=== PATIENT | female | born 1985 | race Caucasian/White ===

== ENCOUNTER 2018-07-22 05:33 | Inpatient (IN) | payer BC ==
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
[~2018-07-22 05:33] MED LIST: Sodium Chloride 0.9% 10 ML Syringe FLUSH PRN
[2018-07-22] MEDS: Lactated Ringers 1,000 ML IV SCH ×2 (06:10→07:26)
[2018-07-22] MEDS ORDERED: Bupivacaine 0.5% 30 ML SDV ONE (06:25)
[2018-07-22] MEDS ORDERED: Citric Acid/Sodium Citrate Solution 30 ML Cup PO ONE (06:30)
[2018-07-22] MEDS ORDERED: Metoclopramide 10 MG/2 ML SDV IVPUSH ONE (06:30)
[2018-07-22] MEDS ORDERED: ceFAZolin 1 GM Vial ONE (07:11)
[2018-07-22] MEDS ORDERED: Phenylephrine 1% 10 MG/ML SDV ONE (07:11)
[2018-07-22] MEDS ORDERED: Oxytocin 10 Units/1 ML SDV ONE ×2 (07:12→08:18)
[2018-07-22] MEDS ORDERED: Ketorolac 30 MG/ML SDV ONE (07:12)
[2018-07-22] MEDS ORDERED: Morphine 10 MG/ML Syringe ONE (07:14)
[2018-07-22] MEDS ORDERED: Bupivacaine 0.75%/D5W 2 ML Amp ONE (07:14)
[2018-07-22] MEDS ORDERED: Morphine PF 1 MG/ML Amp ONE (07:17)
[2018-07-22] MEDS ORDERED: ceFAZolin 2 GM in Premix Bag 1 BAG IV ONE (07:30)
--- NOTE | 2018-07-22 08:36 | PCM.POSTAN ---
POST ANESTHESIA ASSESSMENT - MENTAL STATUS Mental Status: Alert, Oriented - VITAL SIGNS Pulse Rate: 87 SaO2: 97 Resp Rate: 13 Blood Pressure: 99/40 Temperature: 36.4 C - RESPIRATORY Respiratory Status: Respiratory Rate WNL, Airway Patent, O2 Saturation Stable, Supplemental Oxygen - CARDIOVASCULAR CV Status: Pulse Rate WNL, Blood Pressure Stable - GASTROINTESTINAL GI Status: No Symptoms - PAIN Pain Score: 0 - POST OP HYDRATION Hydration Status: Adequate & Stable - OBSERVATIONS Free Text/Narrative:: no anesthesia complications noted
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
--- NOTE | 2018-07-22 08:41 | PCM.OPNOTE ---
- General Post-Op/Procedure Note Date of Surgery/Procedure: 07/22/18 Operative Procedure(s): Repeat low ovarian segment transverse section through Pfannenstiel skin incision Findings: Uterus tubes and ovaries consistent with term . Baby in vertex presentation. Amniotic fluid clear. Lower uterine segment approximately 2 mm thick. No significant scarring noted. Female . Apgars 8 and 8. Weight is 7 lbs. 10 oz. Baby is born at 0802 hrs. on 07/22/2017. Pre Op Diagnosis: 1. 39-0/7 week intrauterine . 2. History of previous section desire for repeat section Post-Op Diagnosis: Same Anesthesia Technique: Combo Spinal/Epidural Other Anesthesia Type: Marcaine 0.5%20 mLlocal Primary Surgeon: Ulices Candelario Secondary Surgeon: Mily Fernandez Anesthesia Provider: Lion Farrell Reason Signal Circuit Designer Was Necessary: Retraction, assistance, patient safety, quality of care. Role of Signal Circuit Designer: Same Fluid Replacement, Intraop: 2,500 Output, Urine Amount: 30 Drain/Tube Comments:: Indwelling bladder catheter Condition: Good Free Text/Narrative:: Surgery duration: 23 minutes Procedure: The patient is appropriately consented. Patient was transferred to the room and placed in a sitting position. Spinal anesthesia was administered. After confirmation of adequate anesthesia patient was placed in a supine position with a wedge under her right side to facilitate left lateral positioning. The patient was prepped and draped in usual fashion after Swenson catheter was already placed . The anesthetic was checked and found to be adequate. 20 mL of Marcaine 0.5% was injected locally in the Pfannenstiel incision site. The Pfannenstiel skin incision was then made and carried down through skin, subcutaneous and fascial layers. The fascia was then undermined superiorly and inferiorly to allow for adequate operating room. The recti muscles midline and preperitoneal fat was bluntly dissected. Peritoneal cavity was entered longitudinally. The vesicouterine peritoneum was then incised transversely and bladder flap was developed. Myometrium was incised transversely to the level of the amniotic sac. This incision was extended bilaterally in a blunt fashion. The amniotic sac was then ruptured resulting in clear amniotic fluid. A hand is placed in the low uterine segment and the baby's head was brought forth through the incision. The baby was completely delivered using fundal pressure in a routine fashion. The nose and mouth were bulb suctioned. Baby's cord was clamped x2 cut and baby was handed off to attending software consultant Dr Irwin. Placenta was expressed after cord blood was obtained. Uterus was then exteriorized to allow for easier closure. The cervix was assessed and found to be dilated adequately to allow egress of blood. The uterus was closed in 2 layers. The first layer a running locked suture of 0 Monocryl, the second layer a running locked vertical mattress suture of 0 Monocryl. [id number] sutures was placed at the left end of the incision and at mid incision to control 2 bleeders. Hemostasis confirmed at this time. Sponge instrument needle counts are correct. The uterus was returned to the abdominal cavity and lateral gutters were cleared of blood. Once again sponge needle counts are correct. The anterior abdominal wall was closed with a #1 PDS suture from angle to angle. The subcutaneous area was found to be free of any bleeders. interrupted sutures of 3-0 Monocryl were used to reapproximate the subcutaneous layer.Skin was closed with a running subcuticular stitch of 3- 0 Monocryl in a vertical mattress suture fashion using a Collin needle. Prineo mesh/glue was then applied to further approximate the incision. It should be noted that patient received 2 g of Ancef preoperatively for infection prophylaxis and had Pitocin infused after delivery of the placenta to facilitate uterine contraction. She also had sequential compression stockings in place for DVT prophylaxis. Patient was discharged from the operating room in satisfactory condition.
[2018-07-22] MEDS ORDERED: ePHEDrine 50 MG/ML SDV IVPUSH PRN (09:34)
[2018-07-22] MEDS ORDERED: Naloxone 0.4 MG/ML SDV IVPUSH PRN (09:34)
[2018-07-22] MEDS ORDERED: Ondansetron 4 MG/2 ML SDV IV PRN (09:34)
[2018-07-22] MEDS ORDERED: Docusate Sodium 100 MG Cap PO PRN (09:34)
[2018-07-22] MEDS ORDERED: Lanolin 100% Cream 7 GM Tube TOP PRN (09:34)
[2018-07-22] MEDS ORDERED: Dextrose 5%-Lactated Ringers 1,000 ML IV SCH (09:34)
[2018-07-22] MEDS: Prenatal Multivitamin with Calcium/Folic Acid/Iron Tab PO SCH ×2 (10:45→11:21)
[2018-07-22] MEDS: diphenhydrAMINE 50 MG/ML SDV IVPUSH PRN ×2 (10:45→16:48)
[2018-07-22] MEDS: Simethicone 80 MG Tab.Chew PO SCH ×4 (11:19→22:07)
[2018-07-22] MEDS: Ibuprofen 800 MG Tab PO SCH ×2 (14:16→22:07)
[2018-07-22] MEDS: Acetaminophen/oxyCODONE 325-5 MG Tab PO PRN (19:00)
[2018-07-23] MEDS: Acetaminophen/oxyCODONE 325-5 MG Tab PO PRN ×4 (00:04→15:34)
[2018-07-23] MEDS: Ibuprofen 800 MG Tab PO SCH ×2 (06:03→13:53)
--- NOTE | 2018-07-23 07:27 | PCM.PNPP ---
- General Info Date of Service: 07/23/18 Functional Status: Reports: Pain Controlled - Review of Systems General: Reports: No Symptoms HEENT: Reports: No Symptoms Pulmonary: Reports: No Symptoms Cardiovascular: Reports: No Symptoms Gastrointestinal: Reports: No Symptoms Genitourinary: Reports: No Symptoms Musculoskeletal: Reports: No Symptoms Skin: Reports: No Symptoms Neurological: Reports: No Symptoms Psychiatric: Reports: No Symptoms - General Info Date of Service: 07/23/18 - Patient Data Vital Signs - Most Recent: Last Vital Signs Temp 36.7 C 07/23/18 04:00 Pulse 89 07/23/18 04:00 Resp 14 07/23/18 06:00 BP 116/89 07/23/18 04:00 Pulse Ox 96 07/23/18 06:00 Weight - Most Recent: 75.705 kg I&O - Last 24 Hours: Intake & Output 07/22/18 07/23/18 07/23/18 22:59 06:59 14:59 Intake Total 240 240 Output Total 3000 1900 Balance -2760 -1900 240 Lab Results - Last 24 Hours: Laboratory Results - last 24 hr 07/23/18 Range/Units 06:19 WBC 10.38 H (3.98-10.04) K/mm3 RBC 4.07 (3.98-5.22) M/mm3 Hgb 12.4 (11.2-15.7) gm/L Hct 36.2 (34.1-44.9) % MCV 88.9 (79.4-94.8) fl MCH 30.5 (25.6-32.2) pg MCHC 34.3 (32.2-35.5) g/dl RDW Std Deviation 40.8 (36.4-46.3) fL Plt Count 158 L (182-369) K/mm3 MPV 12.4 H (9.4-12.3) fl Neut % (Auto) 61.8 (34.0-71.1) % Lymph % (Auto) 27.3 (19.3-51.7) % [place] % (Auto) 7.0 (4.7-12.5) % Eos % (Auto) 3.3 (0.7-5.8) Baso % (Auto) 0.1 (0.1-1.2) % Neut # (Auto) 6.42 H (1.56-6.13) K/mm3 Lymph # (Auto) 2.83 (1.18-3.74) K/mm3 [place] # (Auto) 0.73 H (0.24-0.36) K/mm3 Eos # (Auto) 0.34 (0.04-0.36) K/mm3 Baso # (Auto) 0.01 (0.01-0.08) K/mm3 Med Orders - Current: Current Medications Diphenhydramine HCl (Benadryl) 25 mg IVPUSH Q6H PRN PRN Reason: Itching or Nausea Last Admin: 07/22/18 16:48 Dose: 25 mg Docusate Sodium (Colace) 100 mg PO Q12H PRN PRN Reason: Constipation Emollient Ointment (Lansinoh Hpa) 0 gm TOP ASDIRECTED PRN PRN Reason: Sore Nipples Ephedrine Sulfate (Ephedrine Sulfate) 5 mg IVPUSH SEECOMMENT PRN PRN Reason: Other Ibuprofen (Motrin) 800 mg PO Q8H [facility] Last Admin: 07/23/18 06:03 Dose: 800 mg Naloxone HCl (Narcan) 0.1 mg IVPUSH SEECOMMENT PRN PRN Reason: Respiratory Depression Ondansetron HCl (Zofran) 4 mg IV Q4H PRN PRN Reason: Nausea/Vomiting Oxycodone/Acetaminophen (Percocet 325-5 Mg) 2 tab PO Q4H PRN PRN Reason: Pain (moderate 4-6) Last Admin: 07/23/18 06:44 Dose: 2 tab Prenat Multivit/[place]/Iron/Folic Ac ( Plus Iron) 1 each PO DAILY [facility] Last Admin: 07/22/18 11:21 Dose: Not Given Simethicone (Simethicone) 80 mg PO PCBED [facility] Last Admin: 07/22/18 22:07 Dose: 80 mg Discontinued Medications Bupivacaine HCl (Marcaine 0.5%) Confirm Administered Dose 30 ml .ROUTE .STK-MED ONE Stop: 07/22/18 06:26 Last Admin: 07/22/18 07:58 Dose: 20 ml Bupivacaine HCl/Dextrose (Marcaine 0.75% Spinal) Confirm Administered Dose 2 ml .ROUTE .STK-MED ONE Stop: 07/22/18 07:15 Cefazolin Sodium (Ancef) Confirm Administered Dose 2 gm .ROUTE .STK-MED ONE Stop: 07/22/18 07:12 Citric Acid/Sodium Citrate (Bicitra Solution) 30 ml PO ONETIME ONE Stop: 07/22/18 06:31 Last Admin: 07/22/18 07:19 Dose: 30 ml Cefazolin Sodium/Dextrose 2 gm (/ Premix) 50 mls @ 100 mls/hr IV ONETIME ONE Stop: 07/22/18 07:59 Last Admin: 07/22/18 11:18 Dose: Not Given Lactated Ringer's (Ringers, Lactated) 1,000 mls @ 125 mls/hr IV ASDIRECTED [facility] Last Admin: 07/22/18 07:26 Dose: 999 mls/hr Oxytocin 20 unit/ Lactated (Ringer's) 502 mls @ 500 mls/hr IV ONETIME ONE Stop: 07/22/18 08:30 Last Admin: 07/22/18 11:18 Dose: Not Given Lidocaine HCl (Xylocaine-Mpf 1%) Confirm Administered Dose 5 mls @ as directed .ROUTE .STK-MED ONE Stop: 07/22/18 07:15 Dextrose/Lactated Ringer's (Dextrose 5%-Lactated Ringers) 1,000 mls @ 125 mls/ hr IV ASDIRECTED [facility] Stop: 07/22/18 17:33 Last Admin: 07/22/18 16:26 Dose: 125 mls/hr Ketorolac Tromethamine (Toradol) Confirm Administered Dose 30 mg .ROUTE .STK- MED ONE Stop: 07/22/18 07:13 Metoclopramide HCl (Reglan) 10 mg IVPUSH ONETIME ONE Stop: 07/22/18 06:31 Last Admin: 07/22/18 07:20 Dose: 10 mg Morphine Sulfate (Morphine) Confirm Administered Dose 10 mg .ROUTE .STK-MED ONE Stop: 07/22/18 07:15 Morphine Sulfate (Duramorph Pf) Confirm Administered Dose 1 mg .ROUTE .STK-MED ONE Stop: 07/22/18 07:18 Oxytocin (Pitocin) Confirm Administered Dose 10 unit .ROUTE .STK-MED ONE Stop: 07/22/18 07:13 Oxytocin (Pitocin) Confirm Administered Dose 10 unit .ROUTE .STK-MED ONE Stop: 07/22/18 08:19 Phenylephrine HCl (Santhosh-Synephrine) Confirm Administered Dose 10 mg .ROUTE .STK- MED ONE Stop: 07/22/18 07:12 Sodium Chloride (Saline Flush) 10 ml FLUSH ASDIRECTED PRN PRN Reason: Keep Vein Open - Interaction Support Person: - Recovery Exam Fundal Tone: Firm Fundal Level: 1 Fingerbreadths Below Umbilicus Fundal Placement: Midline Lochia Amount: Small Lochia Color: Rubra/Red Perineum Description: Intact, Minimal Bruising/Swelling Bladder Status: Voiding Urinary Elimination: Voided - Exam General: Alert, Oriented HEENT: Pupils Equal Neck: Supple Lungs: Clear to Auscultation, Normal Respiratory Effort Cardiovascular: Regular Rate, Regular Rhythm GI/Abdominal Exam: Normal Bowel Sounds, Soft, Non-Tender, No Organomegaly, No Distention, No Abnormal Bruit, No Mass, Pelvis Stable Extremities: Normal Inspection, Normal Range of Motion, Non-Tender, No Pedal Edema, Normal Capillary Refill Wound/Incisions: Healing Well Neurological: No New Focal Deficit Psy/Mental Status: Alert, Normal Affect, Normal Mood - Problem List Review Problem List Initiated/Reviewed/Updated: Yes - Assessment Assessment:: POD1 s/p RCS. Doing well. Swenson out. Pain controlled. Possible discharge tomorrow.
[2018-07-23] MEDS: Prenatal Multivitamin with Calcium/Folic Acid/Iron Tab PO SCH (10:52)
[2018-07-23] MEDS: Simethicone 80 MG Tab.Chew PO SCH ×4 (10:52→23:12)
[2018-07-23] MEDS ORDERED: Morphine 4 MG/ML Syringe ONE (18:11)
[2018-07-23] MEDS ORDERED: Morphine 4 MG/ML Syringe IM ONE (18:18)
[2018-07-23] MEDS ORDERED: Sodium Chloride 0.9% 10 ML Syringe FLUSH PRN (18:28)
[2018-07-23] MEDS ORDERED: diphenhydrAMINE 25 MG Cap PO PRN (18:29)
[2018-07-23] MEDS ORDERED: Lactated Ringers 1,000 ML IV SCH (19:00)
--- NOTE | 2018-07-23 19:01 | PCM.SN ---
- Free Text/Narrative Note: Called to assess patient who had been ready for discharge home and started having more significant pain. Bleeding less. Afebrile More tender with movement and palpation of uterus. CBC stable. No elevated WBC Bimanual exam no clot. Very tender. No abnormal discharge Suspect endometritis however no fever or elevated WBC. Monitor and antibiotics if febrile. Control pain. Repeat CBC at midnight
[2018-07-23] MEDS ORDERED: Lactated Ringers 1,000 ML ONE (19:03)
[2018-07-23] MEDS: Morphine 2 MG/ML Syringe IVPUSH PRN ×2 (20:32→23:12)
[2018-07-24] MEDS: diphenhydrAMINE 50 MG/ML SDV IVPUSH PRN (01:33)
[2018-07-24] MEDS: Morphine 2 MG/ML Syringe IVPUSH PRN ×4 (01:34→08:04)
--- NOTE | 2018-07-24 07:54 | PCM.PNPP ---
- General Info Date of Service: 07/24/18 Functional Status: Reports: Pain Controlled - Review of Systems General: Reports: No Symptoms HEENT: Reports: No Symptoms Pulmonary: Reports: No Symptoms Cardiovascular: Reports: No Symptoms Gastrointestinal: Reports: No Symptoms Genitourinary: Reports: No Symptoms Musculoskeletal: Reports: No Symptoms Skin: Reports: No Symptoms Neurological: Reports: No Symptoms Psychiatric: Reports: No Symptoms - General Info Date of Service: 07/24/18 - Patient Data Vital Signs - Most Recent: Last Vital Signs Temp 36.6 C 07/24/18 07:41 Pulse 74 07/24/18 07:41 Resp 14 07/24/18 07:41 BP 109/50 L 07/24/18 07:41 Pulse Ox 92 L 07/24/18 07:41 Weight - Most Recent: 75.705 kg I&O - Last 24 Hours: Intake & Output 07/23/18 07/24/18 07/24/18 22:59 06:59 14:59 Intake Total 180 Balance 180 Lab Results - Last 24 Hours: Laboratory Results - last 24 hr 07/21/18 07/23/18 07/23/18 Range/Units 12:40 17:53 22:55 WBC 10.52 H 9.69 (3.98-10.04) K/mm3 RBC 4.08 3.75 L (3.98-5.22) M/mm3 Hgb 12.3 11.4 (11.2-15.7) gm/L Hct 36.6 33.6 L (34.1-44.9) % MCV 89.7 89.6 (79.4-94.8) fl MCH 30.1 30.4 (25.6-32.2) pg MCHC 33.6 33.9 (32.2-35.5) g/dl RDW Std Deviation 41.4 40.6 (36.4-46.3) fL Plt Count 178 L 172 L (182-369) K/mm3 MPV 12.4 H 12.3 (9.4-12.3) fl Neut % (Auto) 61.0 (34.0-71.1) % Lymph % (Auto) 27.9 (19.3-51.7) % [place] % (Auto) 5.8 (4.7-12.5) % Eos % (Auto) 4.6 (0.7-5.8) Baso % (Auto) 0.2 (0.1-1.2) % Neut # (Auto) 6.42 H (1.56-6.13) K/mm3 Lymph # (Auto) 2.94 (1.18-3.74) K/mm3 [place] # (Auto) 0.61 H (0.24-0.36) K/mm3 Eos # (Auto) 0.48 H (0.04-0.36) K/mm3 Baso # (Auto) 0.02 (0.01-0.08) K/mm3 Neutrophils % (Manual) 43 (40-60) % Band Neutrophils % 0 (0-10) % Lymphocytes % (Manual) 41 H (20-40) % Atypical Lymphs % 5 % Monocytes % (Manual) 2 (2-10) % Eosinophils % (Manual) 9 H (0.7-5.8) % Basophils % (Manual) 0 L (0.1-1.2) Platelet Estimate Adequate Plt Morphology Comment Normal RBC Morph Comment Normal RPR Non-reactive (NONREACTIVE) Med Orders - Current: Current Medications Diphenhydramine HCl (Benadryl) 25 mg IVPUSH Q6H PRN PRN Reason: Itching or Nausea Last Admin: 07/24/18 01:33 Dose: 25 mg Diphenhydramine HCl (Benadryl) 25 mg PO Q6H PRN PRN Reason: Itching Docusate Sodium (Colace) 100 mg PO Q12H PRN PRN Reason: Constipation Emollient Ointment (Lansinoh Hpa) 0 gm TOP ASDIRECTED PRN PRN Reason: Sore Nipples Last Admin: 07/23/18 17:37 Dose: 1 applic Ephedrine Sulfate (Ephedrine Sulfate) 5 mg IVPUSH SEECOMMENT PRN PRN Reason: Other Lactated Ringer's (Ringers, Lactated) 1,000 mls @ 100 mls/hr IV ASDIRECTED ROXY Last Admin: 07/24/18 03:27 Dose: 100 mls/hr Morphine Sulfate (Morphine) 2 mg IVPUSH Q2H PRN PRN Reason: Abdominal Pain Last Admin: 07/24/18 05:40 Dose: 2 mg Naloxone HCl (Narcan) 0.1 mg IVPUSH SEECOMMENT PRN PRN Reason: Respiratory Depression Ondansetron HCl (Zofran) 4 mg IV Q4H PRN PRN Reason: Nausea/Vomiting Prenat Multivit/[place]/Iron/Folic Ac ( Plus Iron) 1 each PO DAILY [facility] Last Admin: 07/23/18 10:52 Dose: Not Given Simethicone (Simethicone) 80 mg PO PCBED [facility] Last Admin: 07/23/18 23:12 Dose: 80 mg Sodium Chloride (Saline Flush) 10 ml FLUSH ASDIRECTED PRN PRN Reason: Keep Vein Open Discontinued Medications Bupivacaine HCl (Marcaine 0.5%) Confirm Administered Dose 30 ml .ROUTE .STK-MED ONE Stop: 07/22/18 06:26 Last Admin: 07/22/18 07:58 Dose: 20 ml Bupivacaine HCl/Dextrose (Marcaine 0.75% Spinal) Confirm Administered Dose 2 ml .ROUTE .STK-MED ONE Stop: 07/22/18 07:15 Cefazolin Sodium (Ancef) Confirm Administered Dose 2 gm .ROUTE .STK-MED ONE Stop: 07/22/18 07:12 Citric Acid/Sodium Citrate (Bicitra Solution) 30 ml PO ONETIME ONE Stop: 07/22/18 06:31 Last Admin: 07/22/18 07:19 Dose: 30 ml Cefazolin Sodium/Dextrose 2 gm (/ Premix) 50 mls @ 100 mls/hr IV ONETIME ONE Stop: 07/22/18 07:59 Last Admin: 07/22/18 11:18 Dose: Not Given Lactated Ringer's (Ringers, Lactated) 1,000 mls @ 125 mls/hr IV ASDIRECTED [facility] Last Admin: 07/22/18 07:26 Dose: 999 mls/hr Oxytocin 20 unit/ Lactated (Ringer's) 502 mls @ 500 mls/hr IV ONETIME ONE Stop: 07/22/18 08:30 Last Admin: 07/22/18 11:18 Dose: Not Given Lidocaine HCl (Xylocaine-Mpf 1%) Confirm Administered Dose 5 mls @ as directed .ROUTE .STK-MED ONE Stop: 07/22/18 07:15 Dextrose/Lactated Ringer's (Dextrose 5%-Lactated Ringers) 1,000 mls @ 125 mls/ hr IV ASDIRECTED [facility] Stop: 07/22/18 17:33 Last Admin: 07/22/18 16:26 Dose: 125 mls/hr Lactated Ringer's (Ringers, Lactated) Confirm Administered Dose 1,000 mls @ as directed .ROUTE .STK-MED ONE Stop: 07/23/18 19:04 Ibuprofen (Motrin) 800 mg PO Q8H [facility] Last Admin: 07/23/18 13:53 Dose: 800 mg Ketorolac Tromethamine (Toradol) Confirm Administered Dose 30 mg .ROUTE .STK- MED ONE Stop: 07/22/18 07:13 Metoclopramide HCl (Reglan) 10 mg IVPUSH ONETIME ONE Stop: 07/22/18 06:31 Last Admin: 07/22/18 07:20 Dose: 10 mg Morphine Sulfate (Morphine) Confirm Administered Dose 10 mg .ROUTE .STK-MED ONE Stop: 07/22/18 07:15 Morphine Sulfate (Duramorph Pf) Confirm Administered Dose 1 mg .ROUTE .STK-MED ONE Stop: 07/22/18 07:18 Morphine Sulfate (Morphine) Confirm Administered Dose 4 mg .ROUTE .STK-MED ONE Stop: 07/23/18 18:12 Last Admin: 07/23/18 18:17 Dose: 4 mg Morphine Sulfate (Morphine) 4 mg IM ONETIME ONE Stop: 07/23/18 18:19 Last Admin: 07/24/18 07:45 Dose: Not Given Oxycodone/Acetaminophen (Percocet 325-5 Mg) 2 tab PO Q4H PRN PRN Reason: Pain (moderate 4-6) Last Admin: 07/23/18 15:34 Dose: 2 tab Oxytocin (Pitocin) Confirm Administered Dose 10 unit .ROUTE .STK-MED ONE Stop: 07/22/18 07:13 Oxytocin (Pitocin) Confirm Administered Dose 10 unit .ROUTE .STK-MED ONE Stop: 07/22/18 08:19 Phenylephrine HCl (Santhosh-Synephrine) Confirm Administered Dose 10 mg .ROUTE .STK- MED ONE Stop: 07/22/18 07:12 Sodium Chloride (Saline Flush) 10 ml FLUSH ASDIRECTED PRN PRN Reason: Keep Vein Open - Infant Interaction Infant Disposition, : in Room with Family Support Person: - Recovery Exam Fundal Tone: Firm Fundal Level: At Umbilicus Fundal Placement: Midline Lochia Amount: Scant Lochia Color: Rubra/Red Perineum Description: Intact, Minimal Bruising/Swelling Episiotomy/Laceration: None Bladder Status: Voiding Urinary Elimination: Voided - Exam General: Alert, Oriented HEENT: Pupils Equal Neck: Supple Lungs: Clear to Auscultation, Normal Respiratory Effort Cardiovascular: Regular Rate, Regular Rhythm GI/Abdominal Exam: Normal Bowel Sounds, Soft, No Organomegaly, No Distention, No Abnormal Bruit, No Mass, Pelvis Stable, Tender Extremities: Normal Inspection, Normal Range of Motion, Non-Tender, No Pedal Edema, Normal Capillary Refill Skin: Warm, Dry Wound/Incisions: Healing Well Neurological: No New Focal Deficit Psy/Mental Status: Alert, Normal Affect, Normal Mood - Problem List Review Problem List Initiated/Reviewed/Updated: Yes - My Orders Last 24 Hours: My Active Orders 07/23/18 18:28 Sodium Chloride 0.9% [Saline Flush] 10 ml FLUSH ASDIRECTED PRN Peripheral IV Insertion Adult [OM.PC] Routine 07/23/18 18:29 Peripheral IV Care [RC] Q2HR diphenhydrAMINE [Benadryl] 25 mg PO Q6H PRN 07/23/18 18:33 Morphine 2 mg IVPUSH Q2H PRN 07/23/18 19:00 Lactated Ringers [Ringers, Lactated] 1,000 ml IV ASDIRECTED - Assessment Assessment:: POD2 s/p RCS. Doing well - pain still above what yesterday was but tolerable CBC improved Doubt infection, think just normal pain post after initial minimal cause duramorph wore off Possible discharge tomorrow.
[2018-07-24] MEDS: Acetaminophen/oxyCODONE 325-5 MG Tab PO PRN ×3 (08:14→16:23)
[2018-07-24] MEDS: Simethicone 80 MG Tab.Chew PO SCH ×2 (08:15→13:47)
[2018-07-24] MEDS: Ibuprofen 600 MG Tab PO PRN ×2 (09:15→14:46)
[2018-07-24] MEDS: Prenatal Multivitamin with Calcium/Folic Acid/Iron Tab PO SCH (09:23)
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
--- NOTE | 2018-07-24 18:54 | PCM.SN ---
- Free Text/Narrative Note: Spoke with nrusing staff. No complications noted. Patient discharged home.
--- NOTE | 2018-07-24 18:55 | PCM48HPAN ---
Post Anesthesia Note - EVALUATION WITHIN 48HRS OF ANESTHETIC Vital Signs in Normal Range: Yes Patient Participated in Evaluation: Yes Respiratory Function Stable: Yes Airway Patent: Yes Cardiovascular Function Stable: Yes Hydration Status Stable: Yes Pain Control Satisfactory: Yes Nausea and Vomiting Control Satisfactory: Yes Mental Status Recovered: Yes
== END 2018-07-24 18:40 | disposition home or self-care (01) | DRG 540 ==
LOC: JD.OB 05:33
PROVIDERS: ADMIT Obstetrics & Gynecology; ATTEND Obstetrics & Gynecology
PROC: 6A550ZT Pheresis of Cord Blood Stem Cells, Single (ICD-10-PCS; principal; 2018-07-22)
PROC: 10D00Z1 Extraction of Products of Conception, Low, Open Approach (ICD-10-PCS; principal; 2018-07-22)
DX: O34.211 Maternal care for low transverse scar from previous cesarean delivery (principal); O98.32 Other infections with a predominantly sexual mode of transmission complicating childbirth; N85.8 Other specified noninflammatory disorders of uterus; Z3A.39 39 weeks gestation of pregnancy; Z37.0 Single live birth; Z88.1 Allergy status to other antibiotic agents; Z88.0 Allergy status to penicillin; Z88.2 Allergy status to sulfonamides; A60.00 Herpesviral infection of urogenital system, unspecified; O99.344 Other mental disorders complicating childbirth; F32.9 Major depressive disorder, single episode, unspecified; F41.9 Anxiety disorder, unspecified; Z87.891 Personal history of nicotine dependence; Z90.49 Acquired absence of other specified parts of digestive tract
CPT/HCPCS: 36415; 59025; 85007; 85025; 85027; 86592; 86850; 86900; 86901; 94762; A9270-GY; J0690; J1200; J1885; J2270; J2274; J2370; J2590; J2765; J3490; J7042; J7120